=== PATIENT | male | born 1950 | race Caucasian/White ===

== ENCOUNTER 2016-10-01 04:11 | Emergency (ER) | payer MEDICARE, OTHER ==
[2016-10-01 03:22] LABS: BASOPHILS 0.5 %; BASOPHILS ABSOLUTE 0.03 10/3/uL (0.0-0.16); EOSINOPHILS 2.3 %; EOSINOPHILS ABSOLUTE 0.15 10/3/uL (0.0-0.53); ER CBC TAT 0 Hrs 07 Mins; HEMOGLOBIN 12.6 g/dL (13.6-17.8); IMMATURE GRANULOCYTES 0.5 %; IMMATURE GRANULOCYTES ABSOLUTE 0.03 10/3/uL (0.0-0.11); LYMPHOCYTES 34.7 %; LYMPHOCYTES ABSOLUTE 2.23 10/3/uL (0.67-4.30); MEAN CORPUSCULAR HEMOGLOB 32.1 pg (26.0-34.0); MEAN CORPUSCULAR VOLUME 89.3 fL (80-100); MONOCYTES 6.5 %; MONOCYTES ABSOLUTE 0.42 10/3/uL (0.21-1.20); NEUTROPHILS 55.5 %; NEUTROPHILS ABSOLUTE 3.57 10/3/uL (2.02-8.40); PLATELET COUNT 191 10/3/uL (150-400); RBC DISTRIBUTION WIDTH 14.1 % (12.0-16.0); RED CELL COUNT 3.92 10/6/uL (4.7-6.1); WHITE BLOOD CELLS 6.4 10/3/uL (4.5-10.5)
[2016-10-01 03:26] LABS: MANUAL DIFF NO %
[2016-10-01 03:33] LABS: PARTIAL THROMBO TIME 34.8 SEC (22.5-37.2); PROTIME (NOT ORD) 22.9 SEC (12.0-14.5)
[2016-10-01 03:34] LABS: A/G RATIO 1.1 (0.7-1.9); CALCIUM, SERUM 8.4 MG/DL (8.5-10.4); CHLORIDE, SERUM 101 MMOL/L (96-112); CO2 (CARBON DIOXIDE) 28 MMOL/L (24-34); CREATININE 1.84 MG/DL (0.70-1.30); GFR AFRICAN AMERICAN 43 ML/MIN (>=60); GFR NON AFRICAN AMERICAN 37 ML/MIN (>=60); GLOBULIN 3.6 G/DL (2.5-4.1); GLUCOSE, SERUM 179 MG/DL (60-99); SODIUM, SERUM 141 MMOL/L (135-148); TOTAL BILIRUBIN 0.5 MG/DL (0-1.2); TOTAL PROTEIN 7.6 G/DL (6.0-8.5)
[2016-10-01 03:35] LABS: ALKALINE PHOSPHATASE 89 U/L (45-117); BUN (BLOOD UREA NITROGEN) 43 MG/DL (6-23); POTASSIUM, SERUM 3.8 MMOL/L (3.5-5.3); SGOT(AST) 46 U/L (5-40); SGPT(ALT) 30 U/L (5-65)
[2016-10-01 03:48] LABS: ASCORBIC ACID (UR NOT ORDER) NEG (NEG); BILIRUBIN, URINE NEGATIVE (NEG); ER URINALYSIS TAT 0 Hrs 00 Mins; KETONE, URINE NEGATIVE (NEG); LEUKOCYTE ESTERASE(NOT OR NEG (NEG); NITRITE (URINE) NEG (NEG); WBC (NOT ORDERED) (RFLEX) 1 (0-5)
[~2016-10-01 04:11] MED LIST: ASA5GR PO; ASAB PO; ATEN50 PO; B12100T PO; CELEXA20 PO; COREG12 PO; COREG25 PO; ELIQUIS 5 MG TAB5 MG PO; FISH-EPA1000 MG PO; GLUCOPHAGE1000 MG PO; GLUCPH PO; HYZAAR 100/25 T1 TAB PO; HYZAAR 50/12.51 TAB PO; IMDUR30 PO; K-TABS10 MEQ PO; KLOR-CON 1010 MEQ PO; KLOR-CON M2020 MEQ PO; L20 PO; L40 PO; L80 PO; LEVAQUIN750 MG PO; LEVEMFLXPN SC; LEVEMIR SC; LEXAPRO10 PO; LIPITOR40 PO; LISINOPRIL40 MG PO; LORCET PO; LORTAB PO; MEDROLPAK4 PO; MICRO-K10 MEQ PO; MUCINEX600 MG PO; MULTIVITAMI1 PO; NITROSTAT0.4 MG SL; NORCO1 TA1 PO; NORV10 PO; OSTEO BI-FLX PO; PERCOCET1 TA4 PO; PLAVIX PO; SPIRO25 PO; SUPER B-100 OR; SUPER B-100 PO; SYMBICORT 160/41 INH INH; SYMBICORT 80/4.1 INH INH; UROXATRAL PO; VITAMIN B PO; VITC500 PO; VITE PO; WELLXL150 PO; XANAX1 MG PO; ZESTRIL30 MG PO; ZESTRIL40 MG PO; ZOCOR40 PO; ZOL50 PO
== END 2016-10-01 05:24 | disposition short-term general hospital (02) ==
LOC: ER 04:11
PROVIDERS: Emergency Medicine
DX: Z45.09 Encounter for adjustment and management of other cardiac device (principal); K21.9 Gastro-esophageal reflux disease without esophagitis; Z79.899 Other long term (current) drug therapy; Z79.4 Long term (current) use of insulin; Z79.84 Long term (current) use of oral hypoglycemic drugs
CPT/HCPCS: 71010; 80053; 81001; 83615; 83880; 85025; 85610; 85730; 99285